=== PATIENT | female | born 1930 | race Caucasian/White ===

== ENCOUNTER 2017-12-30 01:15 | Emergency (ER) | payer MEDICARE, OTHER ==
[~2017-12-30] VITALS: Ht 160 cm; Wt 63.0 kg
[~2017-12-30 01:15] MED LIST: ATEN-104 PO; ATOR20TA42 PO; CALC250T PO; GLUC750T22 PO; HYDR-2768 PO; ICAPCAP; LISI-357 PO; TRAM50TA PO
[2017-12-30 01:23] VITALS: BP 190/79; PULSE 89; RESP 18; TEMP 97.9; O2SAT 96
[2017-12-30] MEDS ORDERED: HYDR25TA5 PO (01:40)
[2017-12-30] MEDS ORDERED: METO1TAB9 PO (01:40)
[2017-12-30] MEDS ORDERED: ATOR20TA15 PO (01:40)
[2017-12-30] MEDS ORDERED: LISI-519 PO (01:40)
[2017-12-30] MEDS ORDERED: SPIR25TA PO (01:40)
--- NOTE | 2017-12-30 01:51 | PD ---
HPI Chief Complaint: Skin Problem Time Seen by Provider: 01:40 Travel History International Travel<30 days: No Contact w/Intl Traveler<30days: No Traveled to known affect area: No History of Present Illness HPI The patient is an 87-year-old female that had a skin cancer removed from her nose. This was done yesterday at 5 PM, Friday. She was to leave the bandage on for 3 days but instead took it off at about 1 AM this morning. She comes in for re-bandaging. PFSH Past Medical History Arthritis: Yes High Cholesterol: Yes Hypertension: Yes Past Surgical History Genitourinary Surgery: Yes (BLADDER SUSPENSION) Hysterectomy: Yes Social History Alcohol Use: No Tobacco Use: No Substance Use: No Allergies-Medications (Allergen,Severity, Reaction): Coded Allergies: No Known Allergies (Unverified Adverse Reaction, Unknown, 12/30/17) Reported Meds & Prescriptions Reported Meds & Active Scripts Active Reported Metoprolol Succinate ER 24 HR (Metoprolol Succinate) 50 Mg Tab 50 Mg PO DAILY Lisinopril 5 Mg Tab 5 Mg PO DAILY Hydrochlorothiazide 25 Mg Tab 25 Mg PO DAILY Atorvastatin (Atorvastatin Calcium) 20 Mg Tab 20 Mg PO HS Spironolactone 25 Mg Tab 25 Mg PO DAILY Review of Systems Except as stated in HPI: all other systems reviewed are Neg Physical Exam Narrative GENERAL: Well-nourished, well-developed patient in minimal apparent distress with her open wound on nose. Her vital signs show blood pressure 190/79 but are otherwise normal. SKIN: Focused skin assessment warm/dry. There is a 1.2 centimeter diameter skin resection on her nose. This does not appear infected. The wound edges are slightly dry because the patient has removed a bandage. HEAD: Normocephalic. EYES: No scleral icterus. No injection or drainage. NECK: Supple, trachea midline. No JVD or lymphadenopathy. CARDIOVASCULAR: Regular rate and rhythm without murmurs, gallops, or rubs. RESPIRATORY: Breath sounds equal bilaterally. No accessory muscle use. GASTROINTESTINAL: Abdomen soft, non-tender, nondistended. MUSCULOSKELETAL: No cyanosis, or edema. BACK: Nontender without obvious deformity. No CVA tenderness. Data Data Last Documented VS Vital Signs Date Time Temp Pulse Resp B/P (MAP) Pulse Ox O2 Delivery O2 Flow Rate FiO2 12/30/17 01:23 97.9 89 18 190/79 (643) 76 MDM Medical Decision Making Medical Screen Exam Complete: Yes Emergency Medical Condition: Yes Medical Record Reviewed: Yes Differential Diagnosis Bandage removal, noncompliance to treatment, infected wound Narrative Course The wound appears clean and noninfected. The wound edges are slightly dry because the bandage has been removed. The patient will be bandaged with Vaseline gauze. Diagnosis Primary Impression: Visit for wound care Additional Impression: Noncompliance with treatment Additional Instructions: Leave the bandage on for 3 days as instructed and follow the instructions given to you by the dermatologic clinic. Disposition: 01 DISCHARGE HOME Condition: Stable Lex Manzo MD Dec 30, 2017 01:51
[2017-12-30 02:10] VITALS: BP 178/82; PULSE 84; RESP 18; O2SAT 97
== END 2017-12-30 02:12 | disposition home or self-care (01) ==
LOC: PHED 01:15
DX: C44.301 Unspecified malignant neoplasm of skin of nose (principal); E78.00 Pure hypercholesterolemia, unspecified; I10 Essential (primary) hypertension; Z48.01 Encounter for change or removal of surgical wound dressing; Z91.19 Patient's noncompliance with other medical treatment and regimen
CPT/HCPCS: 99281